=== PATIENT | female | born 1970 | race Caucasian/White ===

== ENCOUNTER → 2021-12-09 15:56 | Outpatient (CLI) | payer OTHER, SELFPAY ==
--- NOTE | 2021-12-09 15:59 | DI.ECHO.S_ITS ---
[facility]---------+ [facility] +---------+ : : [address] : [address] : : : : [id number] : : : : Phone: [phone]+ Echocardiogram Report + + :Name: IRVING CALDERÓN Study Date: 12/09/2021 Height: 61.5 in: :[facility] ReadingLocation: Weight: 160 lb : : Gender: Female BSA: 1.7 m2 : :: 1970 Age: 51 yrs BP: 153/84 mmHg: :Reason For Study: HYPERTENSION : :Ordering Physician: LADY, : :AJ Performed By: Maty Lee : :Referring: AJ NARAYANAN : + + Interpretation Summary 1) Normal left ventricular thickness, size, wall motion, and systolic function (EF 65-70%). 2) Normal right ventricular size and function. 3) No significant valvular abnormalities. 4) No prior Echo available for comparison. Procedure: A two-dimensional transthoracic echocardiogram with color flow and Doppler was performed. The study quality was technically adequate. There is no prior echocardiogram noted for this patient. The patient was in sinus rhythm with heart rates between 67-93 bpm during the exam. The patient had occasional PVCs during the exam. Left Ventricle: The left ventricle is normal in size and wall thickness. The ejection fraction is estimated to be 65-70%. Left ventricular systolic function appears normal without focal wall motion abnormalities. Diastolic parameters suggest probable normal left ventricular diastolic function and normal filling pressures. Right Ventricle: The right ventricle is normal in size and function. Atria: The left atrial size is normal. Right atrial size is normal. There is no Doppler evidence for an interatrial shunt. Mitral Valve: The mitral valve is normal in structure and function. There is trace mitral regurgitation. Aortic Valve: The aortic valve is trileaflet. The aortic valve opens well. There is no aortic valve stenosis. No aortic regurgitation is present. Tricuspid Valve: The tricuspid valve is normal in structure and function. There is trace tricuspid regurgitation. Pulmonic Valve: The pulmonic valve leaflets are thin and pliable; valve motion is normal. There is no pulmonic valvular regurgitation. Great Vessels: The aortic root is normal size. The ascending aorta could not be visualized. The IVC is of normal diameter and collapses greater than 50% with a sniff. This suggests a low right atrial pressure of 3 mm Hg. Pericardium/ Pleura There is no pericardial effusion. There is no pleural effusion. MMode/2D Measurements & Calculations LVIDd: 4.7 cm LVOT diam: 1.9 cm LVIDs: 2.9 cm Ao root diam: 2.6 cm FS: 37.7 % Ao Arch Diam (Prox Trans): 2.7 cm IVSd: 0.98 cm LVPWd: 0.88 cm LV padgett. diameter/BSA (cm/m^2): 2.7 LV sys. diameter/BSA (cm/m^2): 1.7 LA A2 area: 19.8 cm2 RA long axis: 4.8 cm LA A4 area: 13.7 cm2 RA area: 12.4 cm2 LA length (vol): 4.6 cm RA vol: 27.0 ml LA vol: 50.3 ml RA : 15.6 ml/m2 LA vol index: 29.1 ml/m2 IVC diam: 0.93 cm RVD1 (basal): 3.2 cm RVD2 (mid): 3.0 cm TAPSE: 2.3 cm Doppler Measurements & Calculations Ao V2 max: 175.6 cm/sec LVOT Max Thaddeus: 111.0 cm/sec Ao V2 mean: 114.0 cm/sec LV V1 max P.9 mmHg Ao max P.3 mmHg LV V1 VTI: 24.8 cm Ao mean P.9 mmHg JUNITO(I,D): 2.1 cm2 Ao V2 VTI: 33.8 cm JUNITO(V,D): 1.9 cm2 sev ratio: 0.73 JUNITO indexed to BSA (cm^2/m^2): 1.2 MV E max thaddeus: 79.5 cm/sec PA V2 max: 138.9 cm/sec MV A max thaddeus: 71.0 cm/sec PA V2 mean: 97.2 cm/sec MV E/A: 1.1 PA mean P.3 mmHg Med Peak E' Thaddeus: 10.4 cm/sec PA pr(Accel): 25.9 mmHg E/E' med: 7.6 Lat Peak E' Thaddeus: 12.2 cm/sec E/E' lat: 6.5 E/e' average: 7.1 MV dec time: 0.21 sec SV(LVOT): 72.5 ml Reading Physician:06:28 PM
[2021-12-09 18:39] LABS: Add Manual Diff / Slide Review NO; Basophils Absolute Auto 100 /uL (0-100); Basophils Percent Auto 1.1 % (0-2); Eosinophils Absolute Auto 200 /uL (0-450); Eosinophils Percent Auto 2.4 % (2-4); Lymphocytes Absolute Auto 2200 /uL (1100-4500); Mean Corpuscular HGB Conc 33.3 % (30-36); Mean Corpuscular Hemoglobin 26.6 PG (26-34); Mean Corpuscular Volume 79.8 fL (80-100); Monocytes Absolute Auto 700 /uL (0-900); Monocytes Percent Auto 9.5 % (3-14); Neutrophils Absolute Auto 4000 /uL (1500-7000); Platelet Count 353 X10^3/uL (150-400); Red Blood Cell Count 4.52 X10^6/uL (4.0-5.2); Red Cell Distribution Width 17.1 % (11.6-14.8); White Blood Cell Count 7.2 X10^3/uL (4.5-11.0)
[2021-12-09 22:03] LABS: Alanine Aminotransferase 16 IU/L (<35); Alkaline Phosphatase 55 U/L (38-126); Aspartate Aminotransferase 31 IU/L (14-36); BUN Creatinine Ratio 17.2 (6-22); Bilirubin Total 0.5 mg/dL (0.2-1.3); Blood Urea Nitrogen 16 mg/dL (7-17); Calcium 9.3 mg/dL (8.4-10.2); Carbon Dioxide 25 mmol/L (22-32); Chloride 95 mmol/L (98-107); Estimated Glomerular Filt Rate > 60 mL/min (>60); Glucose 100 mg/dL (70-100); Potassium 4.2 mmol/L (3.4-5.1); Sodium 131 mmol/L (137-145)
[2021-12-09 22:04] LABS: Albumin 4.7 g/dL (3.5-5.0); Albumin Globulin Ratio 1.6 (1.0-2.8); HEMOLYSIS < 15 (0-50); Total Protein 7.7 g/dL (6.3-8.2)
== END ==
PROVIDERS: PCP Family Medicine; Referring Provider Physician Assistant; Visit Provider Physician Assistant
DX: I10 Essential (primary) hypertension (principal)
CPT/HCPCS: 36415; 80053; 85025; 93306

== ENCOUNTER → 2022-01-04 17:03 | Outpatient (CLI) | payer OTHER, SELFPAY ==
[2022-01-04 17:39] LABS: Blood Urea Nitrogen 16 mg/dL (7-17); Calcium 9.3 mg/dL (8.4-10.2); Carbon Dioxide 28 mmol/L (22-32); Chloride 98 mmol/L (98-107); Estimated Glomerular Filt Rate > 60 mL/min (>60); Glucose 113 mg/dL (70-100); HEMOLYSIS < 15 (0-50); Potassium 3.7 mmol/L (3.4-5.1); Sodium 136 mmol/L (137-145)
== END ==
PROVIDERS: PCP Physician Assistant; Referring Provider Physician Assistant; Visit Provider Physician Assistant
DX: E87.1 Hypo-osmolality and hyponatremia (principal)
CPT/HCPCS: 36415; 80048